=== PATIENT | female | born 1955 | race Caucasian/White ===

== ENCOUNTER 2021-07-07 19:24 | Emergency (ER) | payer OTHER ==
--- NOTE | 2021-07-07 20:56 | ER ---
Nurse's Notes [facility] Name: Diann Cortes Age: 65 yrs Sex: Female : 1955 Arrival Date: 07/07/2021 Time: 19:26 Bed DX3 Private MD: Diagnosis: Cellulitis of other parts of limb-left foot Presentation: 07/07 20:42 Chief complaint: Patient states: last night as she was walking upstairs, she stepped on iw a wasp and it stung her, today her left foot is red, itchy and swollen. Coronavirus screen: At this time, the client does not indicate any symptoms associated with coronavirus-19. Ebola Screen: Patient negative for fever greater than or equal to 101.5 degrees Fahrenheit, and additional compatible Ebola Virus Disease symptoms Patient denies exposure to infectious person. Patient denies travel to an Ebola-affected area in the 21 days before illness onset. No symptoms or risks identified at this time. Initial Sepsis Screen: Does the patient meet any 2 criteria? No. Patient's initial sepsis screen is negative. Does the patient have a suspected source of infection? No. Patient's initial sepsis screen is negative. Risk Assessment: Do you want to hurt yourself or someone else? Patient reports no desire to harm self or others. Onset of symptoms was July 06, 2021. 20:42 Method Of Arrival: Ambulatory iw 20:42 Acuity: NIELS 4 iw Historical: - Allergies: 20:43 No Known Allergies; iw - Home Meds: 20:43 simvastatin Oral [Active]; iw - PMHx: 20:43 Glaucoma; Hypercholesterolemia; iw - Social history:: Smoking status: . - Family history:: not pertinent. Screenin:48 Abuse screen: Denies threats or abuse. Denies injuries from another. Nutritional iw screening: No deficits noted. Tuberculosis screening: No symptoms or risk factors identified. Fall Risk None identified. Assessment: 20:47 General: Appears in no apparent distress. Behavior is calm, cooperative. Pain: Denies iw pain. Neuro: Level of Consciousness is awake, alert, obeys commands, Oriented to person, place, time, situation, Moves all extremities. Full function. Derm: Skin is pink, warm \T\ dry. Musculoskeletal: Range of motion: intact in all extremities. Vital Signs: 20:42 BP 137 / 98; Pulse 84; Resp 16; Temp 98.6; Pulse Ox 100% on R/A; Weight 58.97 kg; iw Height 4 ft. 11 in. (149.86 cm); 20:42 Body Mass Index 26.26 (58.97 kg, 149.86 cm) iw ED Course: 19:26 Patient arrived in ED. bp1 20:43 Triage completed. iw 20:44 Arm band placed on. iw 20:46 Fermin Neil, RN is Primary Nurse. em 20:48 No provider procedures requiring assistance completed. Patient did not have IV access iw during this emergency room visit. 20:51 Mary Tinajero MD is Attending Physician. ma2 Administered Medications: 21:12 Drug: Clindamycin 300 mg Route: PO; em Outcome: 20:56 Discharge ordered by . ma2 21:13 Discharged to home ambulatory. em 21:13 Condition: stable 21:13 Discharge instructions given to patient, Instructed on discharge instructions, follow up and referral plans. medication usage, Demonstrated understanding of instructions, follow-up care, medications, Prescriptions given X 1. 21:13 Patient left the ED. em Signatures: Fermin Neil, RN RN Sudha Walker RN RN iw Mary Tinajero MD MD ma2 [place], Brittany bp1
--- NOTE | 2021-07-07 20:56 | EDPHYS ---
Physician Documentation [facility] Name: Diann Cortes Age: 65 yrs Sex: Female : 1955 Arrival Date: 07/07/2021 Time: 19:26 Bed DX3 Private MD: ED Physician Mary Tinajero HPI: 07/07 20:53 This 65 yrs old Female presents to ER via Ambulatory with complaints of Feet ma2 Swelling. 20:53 The patient presents with got stung by a wasp and has developed redness and warmth x 1 ma2 day . Onset: The symptoms/episode began/occurred gradually, 1 day(s) ago. Associated signs and symptoms: Pertinent negatives: nausea, tingling, vomiting, weakness. Severity of symptoms: At their worst the symptoms were mild, in the emergency department the symptoms are unchanged. The patient has not experienced similar symptoms in the past. Historical: - Allergies: 20:43 No Known Allergies; iw - Home Meds: 20:43 simvastatin Oral [Active]; iw - PMHx: 20:43 Glaucoma; Hypercholesterolemia; iw - Social history:: Smoking status: . - Family history:: not pertinent. ROS: 20:53 MS/extremity: Positive for warmth, Negative for bite, ecchymosis, laceration, pain, ma2 paresthesias. 20:53 Constitutional: Negative for fever, chills, and weight loss, : Negative for injury, bleeding, discharge, and swelling. 20:53 All other systems are negative. Exam: 20:53 Constitutional: This is a well developed, well nourished patient who is awake, alert, ma2 and in no acute distress. Chest/axilla: Normal chest wall appearance and motion. Nontender with no deformity. No lesions are appreciated. Cardiovascular: Regular rate and rhythm with a normal S1 and S2. No gallops, murmurs, or rubs. Normal PMI, no JVD. No pulse deficits. Respiratory: Lungs have equal breath sounds bilaterally, clear to auscultation and percussion. No rales, rhonchi or wheezes noted. No increased work of breathing, no retractions or nasal flaring. Abdomen/GI: Soft, non-tender, with normal bowel sounds. No distension or tympany. No guarding or rebound. No evidence of tenderness throughout. Back: No spinal tenderness. No costovertebral tenderness. Full range of motion. Skin: Warm, dry with normal turgor. Normal color with no rashes, no lesions, and no evidence of cellulitis. MS/ Extremity: lreft ventral foot area of redness 3x3 cm and warmth, no fluctuence, otherwise Pulses equal, no cyanosis. Neurovascular intact. Full, normal range of motion. Neuro: Awake and alert, GCS 15, oriented to person, place, time, and situation. Cranial nerves II-XII grossly intact. Motor strength 5/5 in all extremities. Sensory grossly intact. Cerebellar exam normal. Normal gait. Vital Signs: 20:42 BP 137 / 98; Pulse 84; Resp 16; Temp 98.6; Pulse Ox 100% on R/A; Weight 58.97 kg; iw Height 4 ft. 11 in. (149.86 cm); 20:42 Body Mass Index 26.26 (58.97 kg, 149.86 cm) iw MDM: 20:51 Patient medically screened. ma2 20:53 Differential diagnosis: sprain, gout, cellulitis. Data reviewed: vital signs, nurses ma2 notes. Counseling: I had a detailed discussion with the patient and/or guardian regarding: the historical points, exam findings, and any diagnostic results supporting the discharge/admit diagnosis, the presence of at least one elevated blood pressure reading (>120/80) during this emergency department visit, the need for outpatient follow up. Response to treatment: the patient's symptoms have markedly improved after treatment. Administered Medications: 21:12 Drug: Clindamycin 300 mg Route: PO; em Disposition Summary: 07/07/21 20:56 Discharge Ordered Location: Home ma2 Condition: Stable ma2 Diagnosis - Cellulitis of other parts of limb - left foot ma2 Followup: ma2 - With: Private Physician - When: Tomorrow - Reason: Continuance of care Discharge Instructions: - Discharge Summary Sheet ma2 - Cellulitis, Adult, [id number] ma2 Forms: - Medication Reconciliation Form ma2 - Thank You Letter ma2 - Antibiotic Education ma2 - Prescription Opioid Use ma2 Prescriptions: - Clindamycin HCl 300 mg Oral Capsule - take 1 capsule by ORAL route every 6 hours for 10 days; 40 capsule; Refills: 0, ma2 Product Selection Permitted Signatures: Fermin Neil RN RN Sudha Walker RN RN Mary Chapa MD MD ma2
[2021-07-07 21:29] VITALS: BP 137/98; TEMP 98.6; O2SAT 100
== END 2021-07-07 21:13 | disposition home or self-care (01) ==
LOC: ER 19:24
DX: L03.116 Cellulitis of left lower limb (principal); E78.00 Pure hypercholesterolemia, unspecified
CPT/HCPCS: 99283